=== PATIENT | female | born 1950 | race Caucasian/White ===

== ENCOUNTER → 2017-01-13 | Outpatient (CLI) | payer MEDICARE, MEDICAID ==
[~2017-01-13] MED LIST: IOHEXOL-300 100 ML BOTTLE ONE; SODIUM CHLORIDE 0.9% 10ML VIAL ONE
== END | disposition home or self-care (01) ==
LOC: CT 11:36
PROVIDERS: ATTEND Internal Medicine Hematology & Oncology
DX: C7A.019 Malignant carcinoid tumor of the small intestine, unspecified portion (principal); K76.89 Other specified diseases of liver
CPT/HCPCS: 74177; A4216; Q9967

== ENCOUNTER → 2018-01-18 | Outpatient (CLI) | payer MEDICARE, MEDICAID ==
[~2018-01-18] MED LIST changes: +BARIUM SULFATE 450ML ORAL SUSP ONE; -SODIUM CHLORIDE 0.9% 10ML VIAL ONE
== END | disposition home or self-care (01) ==
LOC: CT 10:25
PROVIDERS: ATTEND Internal Medicine Hematology & Oncology
DX: C7A.019 Malignant carcinoid tumor of the small intestine, unspecified portion (principal); K76.89 Other specified diseases of liver
CPT/HCPCS: 74177; Q9967

== ENCOUNTER 2020-06-01 19:29 | Inpatient (IN) | payer MEDICARE, MEDICAID ==
[~2020-06-01] VITALS: Ht 152.4 cm; Wt 59.1 kg
[2020-06-01] MEDS ORDERED: SODIUM CHLORIDE 0.9% 1,000 ML IV ONE (22:52)
[2020-06-02 00:26] LABS: BASOPHILS % 0.4 % (0.0-2.0); EOSINOPHILS % 0.5 % (0.0-5.0); HEMATOCRIT. 39.1 % (36.0-48.0); HEMOGLOBIN. 13.1 g/dL (12.0-16.0); MEAN CORPUSCULAR HEMOGLOBIN 28.1 pg (28.0-32.0); MEAN CORPUSCULAR VOLUME 83.7 fL (81.0-99.0); MEAN PLATELET VOLUME 8.8 fl (7.4-10.4); MONOCYTES % 6.5 % (2.0-8.0); NEUTROPHILS % 58.6 % (40.0-76.0); PLATELET 278 x1000/uL (130-400); RED BLOOD CELL COUNT 4.67 mill/uL (4.2-5.4); RED CELL DISTRIBUTION WIDTH 13.6 % (11.6-14.6)
[2020-06-02 00:27] LABS: CHLORIDE 110 mEq/L (98-107)
[2020-06-02 00:30] LABS: INR 0.9; PARTIAL THROMBOPLASTIN TIME 26.1 sec (23.4-31.0); PROTHROMBIN TIME 9.8 sec (9.6-11.0)
[2020-06-02] MEDS ORDERED: ASPIRIN 325MG EC TABLET PO ONE (01:45)
[2020-06-02 05:26] VITALS: BP 127/69
[2020-06-02 07:34] LABS: BASOPHILS % 0.5 % (0.0-2.0); EOSINOPHILS % 0.8 % (0.0-5.0); HEMATOCRIT. 36.2 % (36.0-48.0); HEMOGLOBIN. 12.2 g/dL (12.0-16.0); LYMPHOCYTES % 31.9 % (20.0-50.0); MEAN CORPUSCULAR VOLUME 83.2 fL (81.0-99.0); MEAN PLATELET VOLUME 8.5 fl (7.4-10.4); MONOCYTES % 6.4 % (2.0-8.0); NEUTROPHILS % 60.4 % (40.0-76.0); PLATELET 235 x1000/uL (130-400); RED BLOOD CELL COUNT 4.35 mill/uL (4.2-5.4); RED CELL DISTRIBUTION WIDTH 13.1 % (11.6-14.6)
[2020-06-02 07:44] LABS: CHLORIDE 112 mEq/L (98-107)
[2020-06-02 08:00] VITALS: BP 122/75
[2020-06-02] MEDS: HEPARIN 5000 UNITS/ML VIAL SUBCUT SCH ×2 (08:00→20:00)
[2020-06-02 10:00] VITALS: BP 125/67
[2020-06-02] MEDS ORDERED: POTASSIUM CHLORIDE 20MEQ TABLET SR PO NR (11:30)
[2020-06-02 11:40] VITALS: BP 142/82
[2020-06-02 12:03] LABS: CLARITY URINE CLEAR (CLEAR); COLOR URINE YELLOW (YELLOW); KETONES URINE NEGATIVE (NEGATIVE); LEUKOCYTE ESTERASE URINE 2+ (NEGATIVE); NITRITE URINE NEGATIVE (NEGATIVE); OCCULT BLOOD URINE NEGATIVE (NEGATIVE); PH URINE 5.5 (4.5-8.0); PROTEIN URINE NEGATIVE (NEGATIVE); SPECIFIC GRAVITY URINE 1.018 (1.005-1.030); UROBILINOGEN URINE 0.2 E.U./dL (0.2-1.0)
[2020-06-02 12:30] LABS: *AMPHETAMINES SCREEN URINE NEGATIVE (NEGATIVE); *BARBITURATES SCREEN URINE NEGATIVE (NEGATIVE); *BENZODIAZEPINES SCREEN URINE NEGATIVE (NEGATIVE); *COCAINE SCREEN URINE NEGATIVE (NEGATIVE)
[2020-06-02 12:31] LABS: CANNABINOID URINE SCREEN NEGATIVE (NEGATIVE); METHADONE URINE SCREEN NEGATIVE (NEGATIVE); OPIATES URINE SCREEN NEGATIVE (NEGATIVE); PHENCYCLIDINE URINE SCREEN NEGATIVE (NEGATIVE)
[2020-06-02 16:00] VITALS: BP 135/55
[2020-06-02 20:00] VITALS: BP 104/58
[2020-06-03] VITALS (9 sets, daily range): BP systolic 103–122; BP diastolic 56–82
[2020-06-03 07:09] LABS: CHLORIDE 110 mEq/L (98-107)
[2020-06-03 07:12] LABS: BASOPHILS % 0.7 % (0.0-2.0); EOSINOPHILS % 0.8 % (0.0-5.0); HEMATOCRIT. 37.8 % (36.0-48.0); HEMOGLOBIN. 12.9 g/dL (12.0-16.0); LYMPHOCYTES % 27.5 % (20.0-50.0); MEAN CORPUSCULAR HEMOGLOBIN 28.2 pg (28.0-32.0); MEAN PLATELET VOLUME 8.4 fl (7.4-10.4); MONOCYTES % 5.9 % (2.0-8.0); NEUTROPHILS % 65.1 % (40.0-76.0); PLATELET 237 x1000/uL (130-400); RED BLOOD CELL COUNT 4.55 mill/uL (4.2-5.4); RED CELL DISTRIBUTION WIDTH 13.3 % (11.6-14.6)
[2020-06-03 07:24] LABS: LDL CHOLESTEROL 92 mg/dL (5-100); TOTAL IRON BINDING CAPACITY 323 ug/dL (250-450)
[2020-06-03 07:27] LABS: HDL CHOLESTEROL 43 mg/dL (40-59); T4 FREE 1.43 ng/dL (0.76-1.46)
[2020-06-03 07:32] LABS: VITAMIN B12 SERUM 354 pg/mL (211-911)
[2020-06-03] MEDS: HEPARIN 5000 UNITS/ML VIAL SUBCUT SCH ×2 (08:00→20:00)
[2020-06-03] MEDS: ASPIRIN 81MG EC TABLET PO SCH (08:34)
[2020-06-03] MEDS: FERROUS SULFATE 325MG TABLET PO SCH (18:25)
[2020-06-04] VITALS (13 sets, daily range): BP systolic 93–118; BP diastolic 52–94
[2020-06-04] MEDS: HEPARIN 5000 UNITS/ML VIAL SUBCUT SCH ×2 (08:00→20:59)
[2020-06-04] MEDS: FERROUS SULFATE 325MG TABLET PO SCH ×2 (08:49→17:34)
[2020-06-04] MEDS: ASPIRIN 81MG EC TABLET PO SCH (08:51)
[2020-06-05] VITALS (8 sets, daily range): BP systolic 96–116; BP diastolic 56–74
[2020-06-05] MEDS: HEPARIN 5000 UNITS/ML VIAL SUBCUT SCH (08:00)
[2020-06-05] MEDS: FERROUS SULFATE 325MG TABLET PO SCH ×2 (08:50→17:20)
[2020-06-05] MEDS: ASPIRIN 81MG EC TABLET PO SCH (08:50)
[2020-06-05] MEDS ORDERED: GABA-529 PO (12:32)
[2020-06-05] MEDS ORDERED: GABAPENTIN 100MG CAPSULE PO SCH (14:00)
[2020-06-05] MEDS ORDERED: FERR325T6 MT (14:26)
== END 2020-06-05 18:30 | disposition home health service (06) | DRG 641 ==
LOC: ER 19:44 → 5EST 06-02 01:04 → ENRESERV 06-02 03:05 → 5EST 06-02 05:21
PROVIDERS: ADMIT Internal Medicine; ATTEND Internal Medicine
DX: E87.6 Hypokalemia (principal); E87.8 Other disorders of electrolyte and fluid balance, not elsewhere classified; H54.8 Legal blindness, as defined in USA; H66.92 Otitis media, unspecified, left ear; E61.1 Iron deficiency; G56.92 Unspecified mononeuropathy of left upper limb; H35.52 Pigmentary retinal dystrophy; I51.7 Cardiomegaly; K11.7 Disturbances of salivary secretion; D3A.00 Benign carcinoid tumor of unspecified site
CPT/HCPCS: 36415; 70553; 71045; 72131; 72156; 72158; 74176; 80048; 80053; 80061; 80305; 81003; 82607; 83036; 83540; 83550; 83735; 83880; 84439; 84443; 84481; 84484; 85025; 93005; 93306; 93880; 93970; 97116; 97162; 97166; 99285; J1644; J7030

== ENCOUNTER → 2021-07-13 | Outpatient (CLI) | payer MEDICARE, MEDICAID ==
[~2021-07-13] MED LIST changes: +FERR325T6 MT; +GABA-529 PO
== END | disposition home or self-care (01) ==
LOC: CT 08:40
PROVIDERS: ATTEND Internal Medicine Hematology & Oncology
DX: C7A.019 Malignant carcinoid tumor of the small intestine, unspecified portion (principal); K76.89 Other specified diseases of liver; K76.0 Fatty (change of) liver, not elsewhere classified; M79.89 Other specified soft tissue disorders; K63.89 Other specified diseases of intestine
CPT/HCPCS: 74177; Q9967

== ENCOUNTER → 2024-05-14 | Outpatient (CLI) | payer MEDICARE, MEDICAID | END | disposition home or self-care (01) | LOC: CT 08:27 | PROVIDERS: ATTEND Internal Medicine Hematology & Oncology | DX: C7A.098 Malignant carcinoid tumors of other sites (principal); K76.9 Liver disease, unspecified | CPT/HCPCS: 71260; 74177; Q9967 ==